=== PATIENT | male | born 1945 | race Caucasian/White ===

== ENCOUNTER → 2016-10-10 07:15 | Day surgery (SDC) | payer MEDICARE ==
[~2016-10-10 07:15] MED LIST: Acetaminophen TAB* 325 MG PO PRN; Buffered Lidocaine 1% SYR 3ML* 3 ML/SYR SYRINGE INTRADERM ONE; Buffered Lidocaine 1% SYR 3ML* 3 ML/SYR SYRINGE ONE; Cyclopentolate 1% OPTH.SOL* 2 ML BTL ONE; Flurbiprofen 0.03% OPTH.SOL* 2.5 ML BTL ONE; Lidocaine 1% MPF* 2 ML VIAL ONE; Lidocaine 2% EPI 1:200000 MPF* 20 ML VIAL ONE; Midazolam* 1 MG/ML 5 ML VIAL (5 MG) ONE; Neomycin/Polymy/Dex OPTH.SUSP* MAXITROL 0.1% 5 ML ONE; Phenylephrine 2.5% OPTH.SOL* 2 ML BTL ONE; Povidone Iodine 5% OPTH* 30 ML BTL ONE; Proparacaine 0.5% OPHTH.SOL* 15 ML BTL ONE; Trypan Blue 0.06% SOL* 0.5 ML BTL ONE; acetaZOLAMIDE TAB* 250 MG ONE
[2016-10-10 09:58] VITALS: BP 145/93
--- NOTE | 2016-10-10 22:59 | OP ---
DATE OF OPERATION: 10/10/16 - [facility] DATE OF : 47 SURGEON: Jamel Desai MD PREOPERATIVE DIAGNOSIS: Cataract, right eye. POSTOPERATIVE DIAGNOSIS: Cataract,right eye. OPERATIVE PROCEDURE: Phacoemulsification right eye with IOL. DESCRIPTION OF PROCEDURE: The patient was brought to the operating room after being given 1/2% Alcaine with epinephrine drops in the preoperative area. The eye was prepped and draped in the usual sterile fashion. Sterile drape and eyelid speculum were placed. Again, topical 1/2% Alcaine with epinephrine was given. A paracentesis incision was made at the 9 o'clock position with the No.75 blade. Clear cornea incision 2.2 x 2.2-mm was created at the 12 o'clock position starting at the anterior limbus using the 2.2-mm keratome. The anterior chamber was irrigated with 0.4 mL of 1% non-preservative intracameral lidocaine and filled with DisCoVisc. A capsulorrhexis was completed using the cystotome and the Utrata forceps. Hydrodissection was performed with balanced salt solution. The lens nucleus was removed with the Phacoemulsification handpiece without incident. Cortex was removed with the irrigation-aspiration handpiece. The capsular bag was re-inflated using DisCoVisc and an [id number] implant was inserted with the shooter. The irrigation-aspiration handpiece was used to remove all residual DisCoVisc. The eye was refilled with balanced salt solution and the wound checked and found to be watertight. Topical Maxitrol drops were given. The patient had a white cataract and very dense nucleus. VisionBlue was used to stain the anterior capsule prior to capsulorrhexis. Indication for complex cataract surgery, white cataract requiring capsular dye. [id number]/[facility] #: [id number] [facility]
== END | disposition home or self-care (01) ==
LOC: OREAST 07:15
PROVIDERS: ATTEND Specialist
DX: H25.11 Age-related nuclear cataract, right eye (principal); F17.210 Nicotine dependence, cigarettes, uncomplicated; I10 Essential (primary) hypertension
CPT/HCPCS: A9270-GY; J2250; V2632

== ENCOUNTER 2016-10-28 00:42 | Observation (INO) | payer MEDICARE ==
[2016-10-28] MEDS ORDERED: Ondansetron INJ* 2 MG/ML VIAL IV ONE (00:52)
[2016-10-28] MEDS ORDERED: NS 0.9% 1000 ML* 1,000 ML IV ONE (00:52)
[2016-10-28] MEDS ORDERED: Morphine INJ* 4 MG/ML 1 ML CARPUJECT IV ONE ×3 (00:52→04:12)
[2016-10-28 01:31] LABS: Hematocrit 46 % (42-52); Hemoglobin 15.3 g/dl (14.0-18.0); Mean Corpuscular HGB Conc 33 g/dl (31-36); Mean Corpuscular Hemoglobin 31 pg (27-31); Mean Corpuscular Volume 93 fL (80-94); Mean Platelet Volume 7 um3 (7.4-10.4); Red Blood Count 4.94 10^6/ul (4.0-5.4); Red Cell Distribution Width 15 % (10.5-15); White Blood Count 12.3 10^3/ul (3.5-10.8)
[2016-10-28 01:46] LABS: Albumin 4.1 g/dL (3.2-5.2); BUN/Creatinine Ratio 14.5 (8-20); Calcium 9.1 mg/dL (8.6-10.3); EGFR African American 117.8 (>60); EGFR Non-African American 91.6 (>60); Globulin 3.2 g/dL (2-4); Potassium 3.7 mmol/L (3.5-5.0); Total Bilirubin 0.4 mg/dL (0.2-1.0); Total Protein 7.3 g/dL (6.4-8.9)
[2016-10-28] MEDS ORDERED: Acetaminophen TAB* 325 MG PO PRN (04:58)
[2016-10-28] MEDS ORDERED: traMADol TAB* 50 MG PO PRN (04:58)
[2016-10-28] MEDS ORDERED: HYDROmorphone INJ* 1 MG/ML CARPUJECT SYRINGE IV PRN (04:58)
[2016-10-28] MEDS ORDERED: Albuterol 2.5 MG/3 ML NEB.SOL* (0.083%) INH PRN (04:58)
[2016-10-28] MEDS ORDERED: oxyCODONE TAB* 5 MG TAB PO PRN (04:58)
[2016-10-28] MEDS ORDERED: Ondansetron INJ* 2 MG/ML VIAL IV PRN (04:58)
[2016-10-28] MEDS ORDERED: Melatonin (NF) 3 MG TAB PO PRN (04:58)
[2016-10-28] MEDS ORDERED: Nicotine Inhaler* 10 MG AMP INH PRN (04:58)
[2016-10-28] MEDS ORDERED: NS 0.9% 1000 ML* 1,000 ML IV SCH (05:00)
--- NOTE | 2016-10-28 05:00 | ED ---
Rajinder Hansen Karl, scribed for Spring Rubinuel on 10/28/16 at 0054 . Lower Extremity - HPI Summary HPI Summary: 71 y/o M CISCO presents w/ c/o left hip pain. Pt reported that he fell 2 hrs [employer] and landed on his left hip on a saeed controller and now has pain in his left hip with significant swelling, bruising, and deformity. - History of Current Complaint Stated Complaint: LT HIP PAIN Time Seen by Provider: 10/28/16 00:46 Hx Obtained From: Patient Mechanism Of Injury: Fall From A Standing Position Onset of Pain: Immediate Onset/Duration: Still Present Severity Initially: Moderate Severity Currently: Moderate - Allergies/Home Medications Allergies/Adverse Reactions: Allergies Allergy/AdvReac Type Severity Reaction Status Date / Time No Known Allergies Allergy Verified 10/10/16 07:52 PMH/Surg Hx/FS Hx/Imm Hx Previously Healthy: No Cardiovascular History: Reports: Hx Hypertension - ON MEDS Denies: Other Cardiovascular Problems/Disorders Respiratory History: Denies: Other Respiratory Problems/Disorders GI History: Denies: Other GI Disorders Musculoskeletal History: Reports: Hx Arthritis - KNEES, LEFT SHOULDER, Other Musculoskeletal History - SPINAL STENOSIS Sensory History: Reports: Hx Cataracts - RIGHT, Hx Contacts or Glasses Denies: Hx Hearing Aid Opthamlomology History: Reports: Hx Cataracts - RIGHT, Hx Contacts or Glasses Neurological History: Denies: Other Neuro Impairments/Disorders Psychiatric History: Reports: Hx Depression - ON MEDS - Surgical History Surgery Procedure, Year, and Place: L4-5 LAMINECTOMY, 2004, [facility] [place] Hx Anesthesia Reactions: No - Family History Known Family History: Negative: Cardiac Disease - Social History Alcohol Use: Rare Alcohol Amount: 1 Q 2-3 MONTHS Substance Use Type: Reports: None Smoking Status (MU): Heavy Every Day Tobacco Smoker Amount Used/How Often: 2 -PACKS A DAY Have You Smoked in the Last Year: Yes Review of Systems Constitutional: Negative Eyes: Negative ENT: Negative Cardiovascular: Negative Respiratory: Negative Gastrointestinal: Negative Genitourinary: Negative Positive: Arthralgia - left hip, Edema - left hip Positive: Bruising - left hip Neurological: Negative Psychological: Normal All Other Systems Reviewed And Are Negative: Yes Physical Exam Triage Information Reviewed: Yes Vital Signs On Initial Exam: Initial Vitals Temp Pulse Resp BP Pulse Ox 97 F 85 20 166/93 96 10/28/16 00:50 10/28/16 00:50 10/28/16 00:50 10/28/16 00:50 10/28/16 00:50 Vital Signs Reviewed: Yes Appearance: Positive: Well-Appearing, No Pain Distress Skin: Positive: Warm, Skin Color Reflects Adequate Perfusion, Dry Head/Face: Positive: Normal Head/Face Inspection Eyes: Positive: EOMI, JAMES ENT: Positive: Normal ENT inspection Neck: Positive: Supple, Nontender Respiratory/Lung Sounds: Positive: Clear to Auscultation, Breath Sounds Present Cardiovascular: Positive: RRR, Pulses are Symmetrical in both Upper and Lower Extremities Abdomen Description: Positive: Nontender, Soft Bowel Sounds: Positive: Present Musculoskeletal: Positive: Other - swelling of left hip, deformed left hip, restricted ROMat left hip, no NV deficit at left hip Neurological: Positive: Normal, Sensory/Motor Intact, Alert, Oriented to Person Place, Time Psychiatric: Positive: Affect/Mood Appropriate Diagnostics - Vital Signs Vital Signs Temp Pulse Resp BP Pulse Ox 10/28/16 04:21 20 10/28/16 02:46 20 10/28/16 02:00 76 16 95 10/28/16 01:07 20 10/28/16 01:00 83 17 153/93 97 10/28/16 00:55 84 16 166/93 97 10/28/16 00:50 97 F 81 17 166/93 96 - Laboratory Lab Results: Lab Results 10/28/16 10/28/16 10/28/16 Range/Units 01:20 01:20 01:20 WBC 12.3 H (3.5-10.8) 10^3/ul RBC 4.94 (4.0-5.4) 10^6/ul Hgb 15.3 (14.0-18.0) g/dl Hct 46 (42-52) % MCV 93 (80-94) fL MCH 31 (27-31) pg MCHC 33 (31-36) g/dl RDW 15 (10.5-15) % Plt Count 225 (150-450) 10^3/ul MPV 7 L (7.4-10.4) um3 Neut % (Auto) 77.3 (38-83) % Lymph % (Auto) 16.4 L (25-47) % [place] % (Auto) 5.2 (1-9) % Eos % (Auto) 0.5 (0-6) % Baso % (Auto) 0.6 (0-2) % Absolute Neuts (auto) 9.5 H (1.5-7.7) 10^3/ul Absolute Lymphs (auto) 2.0 (1.0-4.8) 10^3/ul Absolute Monos (auto) 0.6 (0-0.8) 10^3/ul Absolute Eos (auto) 0.1 (0-0.6) 10^3/ul Absolute Basos (auto) 0.1 (0-0.2) 10^3/ul Absolute Nucleated RBC 0.01 10^3/ul Nucleated RBC % 0.1 INR (Anticoag Therapy) 0.94 (0.89-1.11) APTT 32.8 (26.0-36.3) seconds Sodium 142 (133-145) mmol/L Potassium 3.7 (3.5-5.0) mmol/L Chloride 105 (101-111) mmol/L Carbon Dioxide 25 (22-32) mmol/L Anion Gap 12 H (2-11) mmol/L BUN 12 (6-24) mg/dL Creatinine 0.83 (0.67-1.17) mg/dL Est GFR ( Amer) 117.8 (>60) Est GFR (Non-Af Amer) 91.6 (>60) BUN/Creatinine Ratio 14.5 (8-20) Glucose 86 (70-100) mg/dL Calcium 9.1 (8.6-10.3) mg/dL Total Bilirubin 0.40 (0.2-1.0) mg/dL AST 20 (13-39) U/L ALT 18 (7-52) U/L Alkaline Phosphatase 57 (34-104) U/L Total Protein 7.3 (6.4-8.9) g/dL Albumin 4.1 (3.2-5.2) g/dL Globulin 3.2 (2-4) g/dL Albumin/Globulin Ratio 1.3 (1-3) Result Diagrams: 10/28/16 01:20 10/28/16 01:20 Lab Statement: Any lab studies that have been ordered have been reviewed, and results considered in the medical decision making process. - Radiology XR Left Hip Xray Interpretation: Positive (See Comments) Radiology Interpretation Completed By: ED Physician - IMPRESSION: Questionable fracture of left hip. - CT CT Pelvis CT Interpretation: Positive (See Comments) CT Interpretation Completed By: Radiologist - IMPRESSION: SUBCUTANEOUS HEMATOMA LATERAL TO THE LEFT HIP. NO FRACTURE OR DISLOCATION SEEN. Lower Extremity Course/Dx - Diagnoses Provider Diagnoses: Traumatic hematoma of left hip, Fall, Fracture of left hip - Physician Notifications Discussed Care of Patient With: Dr. Belle (Hospitalist) at 4:31 who agreed to admit the pt. Discharge - Discharge Plan Condition: Stable Disposition: ADMITTED TO [facility] documentation as recorded by the Rajinder gutierrez Karl accurately reflects the service I personally performed and the decisions made by , Leland Rubin.
--- NOTE | 2016-10-28 05:20 | HP ---
H&P (Free Text) History and Physical: PCP: Radames Noguera Date/Time of Evaluation: 10/28/2016 0400 CC: L hip pain s/p fall HPI: Mr Townsend is a 71YO male HX HTN & chronic LBP presenting with intractable L hip pain s/p mechanical fall resulting from tripping over an electric cord. He landed on his left hip on a Wii controller. He was able to stand afterwards, but rapidly developed worsening pain and swelling overlying the impact site. He denies precipitating symptoms, specifically no chest pain, light-headedness, focal W/N/T, change in speech/swallow/vision, or other issue. There was no LOC or head injury. Work up is notable for a large hematoma formation over the L hip laterally, but a CT pelvis/L hip negative for fracture which I personally reviewed via phone with the [employer] provider. Vitals are hypertensive, systolics in the 150s-160s, but otherwise stable. Labs reveal WBCs of 12k, likely demarginalization 2nd acute pain. PMedHx HTN spinal stenosis chronic pain essential tremor Allergies No Known Allergies Allergy (Verified 10/10/16 07:52) Ambulatory Orders Nursing to reconcile. PSurgHx OD cataract extraction laminectomy SocHx: 2PPD cigarettes, rare alcohol, denies recreational drugs; full code status FamHx: Father: CAD, passed of pancreatic CA. Brother & Sister both passed at age 64 of non-Hodgkins lymphoma. Son passed at age 27 2nd IV narcotic overdose. ROS: as above, otherwise reviewed and all were negative Constitutional: NAD, normally developed, well-nourished obese white male vitals: Vital Signs Temp 36.1 C 10/28/16 00:50 Pulse 76 10/28/16 02:00 Resp 20 10/28/16 04:21 BP 153/93 10/28/16 01:00 Pulse Ox 95 10/28/16 02:00 Intake & Output 10/27/16 10/27/16 10/28/16 11:59 23:59 11:59 Intake Total 1000 Balance 1000 Weight 127.006 kg Intake: IV Fluids 1000 HEENM: atraumatic; sclera/conjunctiva: non-icteric/clear; hearing: clinically intact; oropharynx: clear, mucosa moist Neck: soft tissue: non-tender; thyroid: normal Pulmonary: clear to auscultation bilaterally, good aeration, no accessory muscle use CV: RR/RR, normal S1S2, no carotid bruit, no jugular venous distention, 2+ B DP/ PT, no edema Abdominal: soft, non-distended, non-tender, no rebound/guarding/rigidity, normoactive bowel sounds, no hepatosplenomegaly or masses, no costovertebral angle tenderness Musculoskeletal: general: large hematoma formation overlying greater trochanter of L hip; gait: unable to ambulate 2nd pain Integumental: abrasion overlying the L hip hematoma Psychiatric orientation: AA&O to PPS affect: calm mood: pleasant eye contact: good content: reliable responses: timely insight: good Testing: Lab Results 10/28/16 10/28/16 10/28/16 Range/Units 01:20 01:20 01:20 WBC 12.3 H (3.5-10.8) 10^3/ul RBC 4.94 (4.0-5.4) 10^6/ul Hgb 15.3 (14.0-18.0) g/dl Hct 46 (42-52) % MCV 93 (80-94) fL MCH 31 (27-31) pg MCHC 33 (31-36) g/dl RDW 15 (10.5-15) % Plt Count 225 (150-450) 10^3/ul MPV 7 L (7.4-10.4) um3 Neut % (Auto) 77.3 (38-83) % Lymph % (Auto) 16.4 L (25-47) % [place] % (Auto) 5.2 (1-9) % Eos % (Auto) 0.5 (0-6) % Baso % (Auto) 0.6 (0-2) % Absolute Neuts (auto) 9.5 H (1.5-7.7) 10^3/ul Absolute Lymphs (auto) 2.0 (1.0-4.8) 10^3/ul Absolute Monos (auto) 0.6 (0-0.8) 10^3/ul Absolute Eos (auto) 0.1 (0-0.6) 10^3/ul Absolute Basos (auto) 0.1 (0-0.2) 10^3/ul Absolute Nucleated RBC 0.01 10^3/ul Nucleated RBC % 0.1 INR (Anticoag Therapy) 0.94 (0.89-1.11) APTT 32.8 (26.0-36.3) seconds Sodium 142 (133-145) mmol/L Potassium 3.7 (3.5-5.0) mmol/L Chloride 105 (101-111) mmol/L Carbon Dioxide 25 (22-32) mmol/L Anion Gap 12 H (2-11) mmol/L BUN 12 (6-24) mg/dL Creatinine 0.83 (0.67-1.17) mg/dL Est GFR ( Amer) 117.8 (>60) Est GFR (Non-Af Amer) 91.6 (>60) BUN/Creatinine Ratio 14.5 (8-20) Glucose 86 (70-100) mg/dL Calcium 9.1 (8.6-10.3) mg/dL Total Bilirubin 0.40 (0.2-1.0) mg/dL AST 20 (13-39) U/L ALT 18 (7-52) U/L Alkaline Phosphatase 57 (34-104) U/L Total Protein 7.3 (6.4-8.9) g/dL Albumin 4.1 (3.2-5.2) g/dL Globulin 3.2 (2-4) g/dL Albumin/Globulin Ratio 1.3 (1-3) CT brain WO, personally reviewed: Impression: No mass effect or intracranial hemorrhage. CT pelvis WO, personally reviewed: Subcutaneous hematoma lateral to the left hip. No fracture or dislocation seen. Impression: 71M presenting with intractable L hip pain 2nd large hematoma s/p mechanical fall DIAGNOSIS & PLAN Primary intractable L hip pain : pain control : PT evaluation : consider in-house radiology over-read of CT pelvis : supportive care Secondary HTN : review medications once reconciled chronic pain : continue outpatient pain regimen Admission Rational: inpatient for surgical management of L femoral neck FX DVTp: heparin SQ Code Status: full HCP: daughter, Paige
[2016-10-28] MEDS ORDERED: Acetaminophen TAB* 325 MG ONE (05:38)
[2016-10-28] MEDS ORDERED: HYDROmorphone INJ* 1 MG/ML CARPUJECT SYRINGE ONE (05:42)
[2016-10-28] MEDS ORDERED: Omeprazole CAP* 20 MG PO SCH (06:00)
[2016-10-28] MEDS ORDERED: Mouth Piece, Nicotine* 1 EACH CARTRIDGE INH ONE (06:00)
--- NOTE | 2016-10-28 06:24 | RAD ---
INDICATION: Left knee pain COMPARISON: None TECHNIQUE: AP and crosstable lateral views were obtained. FINDINGS: There is advanced tricompartmental osteoarthritis change with bony spur formation about all 3 joint space compartments, chondrocalcinosis, moderate medial joint space narrowing with a valgus deformity, and a moderate-sized suprapatellar joint effusion. IMPRESSION: ADVANCED OSTEOARTHRITIS. JOINT EFFUSION.
--- NOTE | 2016-10-28 06:25 | RAD ---
INDICATION: Intracranial injury COMPARISON: None TECHNIQUE: Noncontrast axial source images were acquired from the skull base to the vertex. FINDINGS: Ventricles/sulci: The ventricles and cisterns are normal in size and configuration for age. Brain parenchyma: There is no focal parenchymal finding, evidence of intracranial mass, or intracranial mass effect. Intracranial hemorrhage:None. Extra-axial spaces: There are no abnormal extra axial fluid collections or evidence of extra-axial mass. Calvarium: There is no calvarial fracture or other calvarial abnormality. Scalp: There is no evidence of scalp or extracalvarial soft tissue abnormality. Paranasal sinuses/mastoid: The paranasal sinuses and mastoid air cells are clear. Other: None. IMPRESSION: No acute intracranial findings.
--- NOTE | 2016-10-28 06:35 | RAD ---
INDICATION: Left hip injury COMPARISON: Left hip October 28, 2016 TECHNIQUE: Source axial images left hip were acquired followed by coronal and sagittal reconstructions. FINDINGS: There is osteopenia. There is no acute hip fracture. There is a sclerotic density involving the left femoral head consistent with a bone island. The pelvic ring is intact. There is no diastases of the SI joints are symphysis. There is 86 days hematoma in the soft tissues of the lateral lower extremity consistent with hematoma in the setting of trauma. This measures 6.0 x 9.0 x 8.5 cm. Additional unrelated findings include osteoarthritis of the lower lumbar spine. There are scattered diverticula. There is no intraperitoneal free fluid. IMPRESSION: NO ACUTE FRACTURE. SUPERFICIAL HEMATOMA.
--- NOTE | 2016-10-28 06:39 | RAD ---
INDICATION: Left hip injury COMPARISON: None TECHNIQUE: An AP view of the pelvis and AP views of the hip in neutral and abducted position were obtained FINDINGS: Bones: There are no acute bony findings. Joint spaces: The hips articulate normally. The joint spaces are preserved. SI joints/symphysis: The SI joints and symphysis are intact. Other: None IMPRESSION: NO ACUTE PLAIN RADIOGRAPHIC ABNORMALITIES.
[2016-10-28 07:35] LABS: Hematocrit 42 % (42-52); Mean Corpuscular HGB Conc 34 g/dl (31-36); Mean Corpuscular Hemoglobin 31 pg (27-31); Mean Corpuscular Volume 93 fL (80-94); Mean Platelet Volume 7 um3 (7.4-10.4); Red Blood Count 4.47 10^6/ul (4.0-5.4); Red Cell Distribution Width 15 % (10.5-15); White Blood Count 11.4 10^3/ul (3.5-10.8)
[2016-10-28 08:04] VITALS: BP 147/78
[2016-10-28] MEDS ORDERED: Docusate CAP* 100 MG PO SCH (09:00)
--- NOTE | 2016-10-28 10:21 | PN ---
Progress Note - Progress Note Note: Patient advised to quit smoking and avoid second hand smoke.
[2016-10-28] MEDS ORDERED: Diltiazem CD CAP* 180 MG PO SCH (11:00)
[2016-10-28] MEDS ORDERED: DULoxetine DR CAP* 60 MG CAP.DR PO SCH (11:00)
--- NOTE | 2016-10-28 19:17 | DS ---
DISCHARGE SUMMARY: DATE OF ADMISSION: 10/28/16 DATE OF DISCHARGE: 10/28/16 HISTORY OF PRESENT ILLNESS: This 71-year-old man tripped at home. He fell and landed on a game controller on his left hip. He suffered a hematoma, it was quite painful. He came to the emergency room. He was admitted. By the time I saw him, he was feeling a little better. He was able to walk. He was very anxious to go home. He did not require any extra pain medication. I note he is on chronic, long- term, long-acting opiates for his spinal stenosis. His normal antihypertensive agents were not ordered for the morning, but I gave him his full dose of diltiazem and half his dose of lisinopril before discharge. I instructed him to take all his usual medications at home. He did not receive any additional medication for pain. PHYSICAL EXAMINATION: On physical examination, there was a hematoma probable in the left trochanter region, somewhat tender. He also complained of left knee pain, which is a chronic problem that he has been seeking attention for. There was some mild effusion. No warmth or tenderness there. Overall, he seemed quite confident and has a good social network at home for support. His daughter will bring him home. FINAL DIAGNOSES: 1. Soft tissue trauma. 2. Spinal stenosis. 3. Left knee arthritis. 4. Hypertension. DISCHARGE MEDICATIONS: 1. Acetaminophen 650 mg every 6 hours p.r.n. 2. Lisinopril 40 mg daily. 3. Opana ER crush resistant 30 mg b.i.d. 4. Diltiazem 360 mg daily. 5. Oxycodone slow release 15 mg daily. 6. Duloxetine 60 mg daily. CC: Dr. Hatch, [place] * [id number]/[facility] #: [id number] [facility]
[2016-10-29] MEDS ORDERED: Lisinopril TAB* 10 MG PO ONE (10:10)
--- NOTE | 2016-12-21 22:18 | ED ---
Rajinder Hansen Karl, scribed for Leland Rubin on 10/28/16 at 0515 . Progress - Progress Note Progress Note: CT Brain IMPRESSION (Radiologist): No Mass effect or intracranial hemorrhage Course/Dx - Diagnoses Provider Diagnoses: Traumatic hematoma of left hip, Fall, Fracture of left hip - Provider Notifications Discussed Care Of Patient With: Dr. Belle (Hospitalist) at 4:31 who agreed to admit the pt. The documentation as recorded by the Rajinder gutierrez Karl accurately reflects the service I personally performed and the decisions made by Scottie galvez Emmanuel.
== END 2016-10-28 11:15 | disposition home or self-care (01) ==
LOC: ED 00:42 → MED 05:24
PROVIDERS: ADMIT Hospitalist; ATTEND Internal Medicine
DX: S70.02XA Contusion of left hip, initial encounter (principal); S70.212A Abrasion, left hip, initial encounter; W19.XXXA Unspecified fall, initial encounter; F17.200 Nicotine dependence, unspecified, uncomplicated; F32.9 Major depressive disorder, single episode, unspecified; M25.462 Effusion, left knee; M17.12 Unilateral primary osteoarthritis, left knee; Z23 Encounter for immunization
CPT/HCPCS: 36415; 70450; 72192; 80053; 85025; 85027; 85610; 85730; 96374; 96375; 99285; A9270-GY; G0378; J1170; J2270; J2405